=== PATIENT | female | born 1935 | race Hispanic/Latino ===

== ENCOUNTER 2017-10-10 06:36 | Day surgery (SDC) | payer MEDICARE, OTHER ==
[2017-01-07 03:07] VITALS: BMI 24.9
[~2017-10-10 06:36] MED LIST: Ciprofloxacin 0.3% OPTH SOLN OD SCH; Cyclopentolate 1% Opth (2 ml) OD SCH; Flurbiprofen 0.03% Opht SOLN OD SCH; Lactated Ringer's 500 ML IV ONE; Phenylephrine 2.5% Opht Soln OD SCH; Tropicamide 1% Opht SOLUTION OD SCH
[2017-10-10] MEDS ORDERED: Lactated Ringer's 1,000 ML IV ONE (07:34)
[2017-10-10 07:38] VITALS: RESP 20; TEMP 97.5
[2017-10-10] MEDS ORDERED: Povidone Iodine Ophthalmic 5% Soln ONE ×2 (07:39→07:42)
[2017-10-10] MEDS ORDERED: Carbachol 0.01% IO ONE ×2 (07:39→07:42)
[2017-10-10] MEDS ORDERED: Tetracaine 0.5% Ophth (OR ONLY) ONE ×2 (07:40→07:42)
[2017-10-10] MEDS ORDERED: Lidocaine 2% Inj (20ml) ONE ×2 (07:40→07:42)
[2017-10-10] MEDS ORDERED: Hyaluronidase Human, Recombi 150 U/ML VIAL ONE ×2 (07:40→07:43)
[2017-10-10] MEDS ORDERED: Chondroitin/Hyaluronate Opth Syringe KIT (0.55 ml-0.5 ml) IO ONE ×2 (07:40→07:42)
[2017-10-10] MEDS ORDERED: Midazolam 2 MG/2 ML VIAL ONE (09:54)
--- NOTE | 2017-10-10 14:07 | OP ---
PROCEDURE DATE: 10/10/2017. PREOPERATIVE DIAGNOSIS: Cataract, right eye. POSTOPERATIVE DIAGNOSIS: Cataract, right eye. PROCEDURE: Phacoemulsification right eye with insertion of posterior chamber implant. SURGEON: Ge Lazar MD ANESTHESIA TYPE: Local intravenous sedation. PROCEDURE: The patient was brought into the operating room, placed in supine position, prepped and draped in the usual fashion for ophthalmic surgery. Lid speculum was inserted, lids and exposing globe. A side-port incision was made superiorly and inferiorly with a disposable sharp blade. Anterior chamber was filled with Viscoat. A near clear corneal incision was made temporally with a 2.75-mm keratome. Capsulorrhexis was then performed with Utrata forceps. Hydrodissection carried out with balanced salt solution. Nucleus was phacoemulsified. Remaining cortical fragments were removed with a split irrigation and aspiration system. The capsular sac was filled with Provisc. A posterior chamber lens was then injected into the capsular sac and rotated into horizontal position. Provisc was aspirated out of the anterior chamber. The pupil was constricted with Miochol. The wound was found to be watertight. Topical Betadine, Timoptic, and TobraDex ointment and pressure patch were applied. The patient tolerated the procedure well. Ge Lazar MD
[2017-10-10 17:07] VITALS: BP 106/61; PULSE 94; O2SAT 98
== END 2017-10-10 12:48 | disposition home or self-care (01) ==
LOC: C.SDS 06:36
PROVIDERS: ATTEND Ophthalmology
DX: H26.9 Unspecified cataract (principal)
CPT/HCPCS: 66984; J2250; J3010; J3470; J7120; V2632

== ENCOUNTER 2017-11-07 06:48 | Day surgery (SDC) | payer MEDICARE, OTHER ==
[2017-01-07 03:07] VITALS: BMI 24.9
[~2017-11-07 06:48] MED LIST changes: -Ciprofloxacin 0.3% OPTH SOLN OD SCH; +Ciprofloxacin 0.3% OPTH SOLN OS SCH; -Cyclopentolate 1% Opth (2 ml) OD SCH; -Flurbiprofen 0.03% Opht SOLN OD SCH; +Flurbiprofen 0.03% Opht SOLN OS SCH; -Phenylephrine 2.5% Opht Soln OD SCH; +Phenylephrine 2.5% Opht Soln OS SCH; -Tropicamide 1% Opht SOLUTION OD SCH; +Tropicamide 1% Opht SOLUTION OS SCH
[2017-11-07] MEDS ORDERED: Carbachol 0.01% IO ONE (07:35)
[2017-11-07] MEDS ORDERED: Povidone Iodine Ophthalmic 5% Soln ONE (07:35)
[2017-11-07] MEDS ORDERED: Chondroitin/Hyaluronate Opth Syringe KIT (0.55 ml-0.5 ml) IO ONE (07:35)
[2017-11-07] MEDS ORDERED: Tobramycin/Dexamethasone OPHT OINT ONE (07:35)
[2017-11-07] MEDS ORDERED: Hyaluronidase Human, Recombi 150 U/ML VIAL ONE (07:35)
[2017-11-07] MEDS ORDERED: Tetracaine 0.5% Ophth (OR ONLY) ONE (07:35)
[2017-11-07] MEDS ORDERED: Lidocaine 2% Inj (20ml) ONE (07:35)
[2017-11-07] MEDS ORDERED: Lactated Ringer's 500 ML IV ONE (07:45)
[2017-11-07] MEDS ORDERED: Midazolam 2 MG/2 ML VIAL ONE (08:35)
[2017-11-07 14:07] VITALS: O2SAT 95
[2017-11-07 14:10] VITALS: BP 149/68; PULSE 91; RESP 20; TEMP 98.1
--- NOTE | 2017-11-07 19:25 | OP ---
PROCEDURE DATE: 11/07/2017 PREOPERATIVE DIAGNOSIS: Cataract, left eye. POSTOPERATIVE DIAGNOSIS: Cataract, left eye. OPERATIVE PROCEDURE: Phacoemulsification, left eye, insertion of posterior chamber lens implant. SURGEON: Ge Lazar MD ANESTHESIA TYPE: Local intravenous sedation. PROCEDURE: The patient was brought into the operating room, placed in supine position, prepped and draped in the usual fashion for ophthalmic surgery. Lid speculum was inserted, lids and exposing globe. A side-port incision was made superiorly and inferiorly with a disposable sharp blade. Anterior chamber was filled with Viscoat. A near clear corneal incision was made temporally with a 2.75-mm keratome. Capsulorrhexis was then performed with Utrata forceps. Hydrodissection carried out with balanced salt solution. Nucleus was phacoemulsified. Remaining cortical fragments were removed with a split irrigation and aspiration system. The capsular sac was filled with Provisc. A posterior chamber lens was then injected into the capsular sac and rotated into horizontal position. Provisc was aspirated out of the anterior chamber. The pupil was constricted with Miochol. The wound was found to be watertight. Topical Betadine, Timoptic, and TobraDex ointment and pressure patch were applied. The patient tolerated the procedure well. Ge Lazar MD
== END 2017-11-07 12:58 | disposition home or self-care (01) ==
LOC: C.SDS 06:48 → C.OPSURG 06:48 → C.SDS 12:58
PROVIDERS: ATTEND Ophthalmology
DX: H26.9 Unspecified cataract (principal)
CPT/HCPCS: 66984; J2250; J3010; J3470; J7120; V2632